=== PATIENT | female | born 1990 | race Caucasian/White ===

== ENCOUNTER 2020-08-01 02:32 | Emergency (ER) | payer OTHER ==
[~2020-08-01] VITALS: Ht 157.5 cm; Wt 105.2 kg
[2020-08-01 02:42] VITALS: BP 151/94
--- NOTE | 2020-08-01 02:45 | NUR ---
PT AMBULATED TO THE TOILET FOR URINE COLLECTION
--- NOTE | 2020-08-01 02:59 | NUR ---
WALKED PT TO RM05
--- NOTE | 2020-08-01 03:00 | NUR ---
PATIENT PRESENTS TO ED WITH complaints of abdominal pain. Pt states gall bladder problems from 2019 till present. PT STATES pain level is a 10 . Patient experiencing V/D; SKIN IS PINK/WARM/DRY; AAOX4 WITH EVEN AND STEADY GAIT; LUNGS CLEAR BL; HR EVEN AND REGULAR; PT DENIES ANY FEVER, CP, SOB, OR COUGH AT THIS TIME; VSS; PATIENT POSITIONED FOR COMFORT; HOB ELEVATED; BEDRAILS UP X2; BED DOWN. ER MD MADE AWARE OF PT STATUS. Doctor Abebe at bedside. PMH: gall bladder Allergies: Lamictal
[2020-08-01] MEDS ORDERED: NACL 0.9% 1,000 ML IV ONE (03:20)
[2020-08-01] MEDS ORDERED: MORPHINE SULFATE 4 MG/ML SYR IVP ONE (03:20)
[2020-08-01] MEDS ORDERED: ONDANSETRON 4 MG/2 ML VIAL IVP ONE (03:20)
--- NOTE | 2020-08-01 03:20 | NUR ---
Pt taken to CT by w/c
--- NOTE | 2020-08-01 03:29 | NUR ---
PT TAKEN TO CT VIA W/C
[2020-08-01 03:40] LABS: APPEARANCE,URINE CLEAR (CLEAR); BILIRUBIN,URINE NEGATIVE (NEGATIVE); BLOOD, URINE NEGATIVE (NEGATIVE); COLOR,URINE YELLOW (YELLOW); LEUKOCYTE ESTERASE ,URINE NEGATIVE (NEGATIVE); NITRITE, URINE NEGATIVE (NEGATIVE); UGLUCOSE NEGATIVE (NEGATIVE)
--- NOTE | 2020-08-01 03:40 | NUR ---
Pt returned from CT via w/c
[2020-08-01 03:43] LABS: BASOPHILS # (AUTO) 0.1 K/uL (0.00-0.22); EOSINOPHILS # (AUTO) 0.1 K/uL (0-0.4); EOSINOPHILS % (AUTO) 0.7 % (0.0-4.0); HEMATOCRIT 40.5 % (36-48); HEMOGLOBIN 13.3 g/dL (12.0-16.0); LYMPHOCYTES # (AUTO) 1.5 K/uL (2.5-16.5); LYMPHOCYTES % (AUTO) 15.9 % (20.5-51.1); MEAN CORPUSCULAR HEMOGLOBIN 27 pg (27-31); MEAN CORPUSCULAR HGB CONC 33 g/dL (33-37); MEAN CORPUSCULAR VOLUME 80.9 fL (80-94); MONOCYTES # (AUTO) 0.5 K/uL (0.8-1.0); MONOCYTES % (AUTO) 5.7 % (1.7-9.3); NEUTROPHILS # (AUTO) 7.2 K/uL (1.8-7.7); NEUTROPHILS % (AUTO) 76.7 % (42.2-75.2); PLATELET COUNT (AUTO) 256 K/uL (140-450); RED CELL DISTRIBUTION WIDTH 14.2 % (11.6-13.7); WHITE BLOOD COUNT (AUTO) 9.4 K/uL (4.8-10.8)
[2020-08-01 03:57] LABS: ALBUMIN 3.8 g/dL (3.4-5.0); ANION GAP 15.2 (8-16); CARBON DIOXIDE 24.6 mmol/L (21-32); CREATININE 0.8 mg/dL (0.6-1.3); POTASSIUM 3.8 mmol/L (3.5-5.1); TOTAL BILIRUBIN 0.3 mg/dL (0.0-1.0)
[2020-08-01] MEDS ORDERED: PANT40EC PO (04:47)
--- NOTE | 2020-08-01 04:50 | NUR ---
DR AUGUSTINE AT BEDSIDE FOR REXAM AND DISPOSITION
[2020-08-01 05:12] VITALS: BP 109/62
--- NOTE | 2020-08-01 05:12 | NUR ---
Patient discharged with v/s stable. Patient states pain has gone down to a 0/10. Written and verbal after care instructions given and explained. Patient alert, oriented and verbalized understanding of instructions. Ambulatory with steady gait. All questions addressed prior to discharge. ID band removed. Patient advised to follow up with PMD. Rx of protonix given. Patient educated on indication of medication including possible reaction and side effects. Opportunity to ask questions provided and answered.
== END 2020-08-01 05:12 | disposition home or self-care (01) ==
LOC: MED 02:32
DX: K80.20 Calculus of gallbladder without cholecystitis without obstruction (principal); Z88.8 Allergy status to other drugs, medicaments and biological substances
CPT/HCPCS: 36415; 74176; 80053; 81003; 81025; 83605; 83690; 84484; 85025; 93005; 96361; 96374; 96375; 99285; J2270; J2405; J7030

== ENCOUNTER 2022-06-08 10:20 | Outpatient (CLI) | payer OTHER ==
[~2022-06-08] VITALS: Ht 157.5 cm; Wt 99.8 kg
[~2022-06-08 10:20] MED LIST: PANT40EC PO
== END 2022-06-08 23:59 | disposition home or self-care (01) ==
LOC: MLB 10:20 → EDSTATUS 06-10 13:20
PROVIDERS: ATTEND Internal Medicine Gastroenterology
DX: Z01.818 Encounter for other preprocedural examination (principal); K62.5 Hemorrhage of anus and rectum; Z20.822 Contact with and (suspected) exposure to COVID-19

== ENCOUNTER 2022-07-15 07:30 | Day surgery (SDC) | payer OTHER ==
[~2022-07-15] VITALS: Ht 157.5 cm; Wt 99.8 kg
[2022-07-15] MEDS ORDERED: fentaNYL citrate 0.05 MG/ML VIAL ONE (08:26)
[2022-07-15] MEDS ORDERED: LIDOCAINE 2% 100 MG/5 ML UJET TP ONE (08:26)
[2022-07-15] MEDS ORDERED: MIDAZOLAM 5 MG/5 ML VIAL ONE (08:26)
== END 2022-07-15 10:30 | disposition home or self-care (01) ==
LOC: MDS 07:30 → MMU 07:30 → MDS 10:30
PROVIDERS: ATTEND Internal Medicine Gastroenterology
DX: K62.5 Hemorrhage of anus and rectum (principal); F41.9 Anxiety disorder, unspecified; F32.A Depression, unspecified; K21.9 Gastro-esophageal reflux disease without esophagitis; Z90.49 Acquired absence of other specified parts of digestive tract; Z20.822 Contact with and (suspected) exposure to COVID-19; Z98.84 Bariatric surgery status; Z79.899 Other long term (current) drug therapy
CPT/HCPCS: 45378; 87426; J3010; J2250